=== PATIENT | female | born 1995 | race Hispanic/Latino ===

== ENCOUNTER 2021-03-26 22:10 | Outpatient (CLI) | payer OTHER, SELFPAY ==
[~2021-03-26] VITALS: Ht 157.5 cm; Wt 79.7 kg
[2021-03-26 22:31] VITALS: BP 119/68
[2021-03-26] MEDS ORDERED: IRON27TA2 PO (22:34)
[2021-03-26] MEDS ORDERED: PREN1CHW PO (22:34)
[2021-03-26 23:52] VITALS: BP 113/63
== END 2021-03-27 00:47 | disposition home or self-care (01) ==
LOC: EDBD 22:10 → M LDO 22:10
PROVIDERS: ATTEND Obstetrics & Gynecology
DX: O60.03 Preterm labor without delivery, third trimester (principal); O26.893 Other specified pregnancy related conditions, third trimester; Z3A.33 33 weeks gestation of pregnancy

== ENCOUNTER 2021-04-26 03:53 | Outpatient (CLI) | payer OTHER ==
[~2021-04-26] VITALS: Ht 157.5 cm; Wt 82.8 kg
[~2021-04-26 03:53] MED LIST: IRON27TA2 PO; PREN1CHW PO
[2021-04-26 04:03] VITALS: BP 134/77
[2021-04-26] MEDS ORDERED: ZOLO25TA PO (04:13)
[2021-04-26] MEDS ORDERED: TUMS500C PO (04:13)
[2021-04-26] MEDS ORDERED: HOME MED LIST COMPLETE! XX SCH (04:15)
[2021-04-26 06:08] VITALS: BP 125/78
--- NOTE | 2021-04-26 06:23 | IPNPDOC ---
Obstetrical Progress Note Date of Service Apr 26, 2021 Subjective 25 yo @ 37W3D by LMP C/W 8 US who presents c/o leaking of fluid. she reports she went to the bathroom and after that she leaked clear fluids and soaked her panties any pants. she then changed out of those and has not felt wet since. she also reports some contractions for a few hours that are every 6min or so. she reports they are not too painful, but are uncomfortable. she reports reg movements and has no other concerns. FHT: 140, MOD ERIN, +ACCELS ( multiplr 15x15), no decels---Reactive NST SVE: 1/T/H TOCO: Q4-7MIN Vitals- reviewed TAUS_ Cephalic, MVP 4.5cm Vital Signs Label Value Date Time Patient Temperature 98.0 degrees F 04/26/21 0608 Temperature Source Temporal 04/26/21 0608 Pulse 90 04/26/21 0608 Respiratory Rate 18 bpm 04/26/21 0608 Blood Pressure Assessment 125/78 (94) 04/26/21 0608 Source Automatic Cuff (NIBP) A/P 25 YO @ 37WK3D who presents for SROM check and found not to be ruptured. normal fluids, MVP 4.5CM, NO POOLING, NEG NITRIZINE. 1CM dilated. hemodynamically stable. not in labor yet. -given strict return precautions -f/u with [facility] in a week as previously scheduled. - Objective Vital Signs Date Time Temp Pulse Resp B/P (MAP) Pulse Ox O2 Delivery O2 Flow Rate FiO2 04/26/21 04:03 97.6 103 18 134/77 (96) 99 Room Air JEANNINE CHEEMA MD Apr 26, 2021 06:23
== END 2021-04-26 06:21 | disposition home or self-care (01) ==
LOC: M LDO 03:53
PROVIDERS: ATTEND Obstetrics & Gynecology
DX: O60.03 Preterm labor without delivery, third trimester (principal); O26.893 Other specified pregnancy related conditions, third trimester; N89.8 Other specified noninflammatory disorders of vagina; Z3A.37 37 weeks gestation of pregnancy
CPT/HCPCS: 59025; G0378; G0463